=== PATIENT | male | born 1945 | race Caucasian/White ===

== ENCOUNTER → 2017-12-08 | Outpatient (CLI) | payer MEDICARE ==
--- NOTE | 2017-12-08 08:26 | MR ---
EXAMINATION TYPE: MR cervical spine wo con DATE OF EXAM: 12/08/2017 8:19 AM COMPARISON: NONE HISTORY: Cervicalgia / Spondylolisthesis Multiplanar MultiSpin echo imaging of the cervical spine was performed. Comparison: none C2-C3: No evidence for degenerative disc disease. No disc bulge/herniation or protrusion. No Canal stenosis. Foramina are patent bilaterally. C3-C4: There is evidence of mild disc desiccation. Mild posterocentral disc bulge with effacement ve ntral thecal sac. Minimal distortion of the ventral cervical spinal cord with borderline to mild cent ral stenosis. Neural foramina are patent bilaterally. C4-C5: No evidence for degenerative disc disease. No disc bulge/herniation or protrusion. No Canal stenosis. Foramina are patent bilaterally. C5-C6: Mild disc desiccation noted. Mild posterocentral disc bulge. No herniation protrusion or centr al stenosis. Foramina are patent bilaterally. C6-C7: Mild disc desiccation noted. Mild posterocentral disc bulge. No herniation protrusion or centr al stenosis. Foramina are patent bilaterally. C7-T1: No evidence for degenerative disc disease. No disc bulge/herniation or protrusion. No Canal stenosis. Foramina are patent bilaterally. Cervical segments are intact. There is normal alignment. Cervical spinal cord is of normal signal. Craniovertebral junction relationships are within normal limits. IMPRESSION: 1. Multilevel degenerative disc disease greatest at C3-4 where there is borderline to mild central st enosis. See above.
== END | disposition home or self-care (01) ==
LOC: RADMRIMAIN 07:36
PROVIDERS: ATTEND Physical Medicine & Rehabilitation
DX: M50.31 Other cervical disc degeneration, high cervical region (principal)
CPT/HCPCS: 72141